=== PATIENT | male | born 1970 | race Caucasian/White ===

== ENCOUNTER 2019-11-11 10:50 | Emergency (ER) | payer OTHER ==
[~2019-11-11] VITALS: Ht 177.8 cm; Wt 169.9 kg
--- OUTSIDE RECORDS SUMMARY | 2019-11-11 10:58 | XMS REPORT ---
Author Author Nico Vines Organization [facility] Address [address] [place] [address] Care Team Providers Care Professional Nursing Tutor Name Role Phone Trent Vines Unavailable PROBLEMS Type Condition ICD9-CM Code [id number] Code Onset Dates Condition S tatus SNOMED Code Problem Chronic active hepatitis C K73.2 Act ann 439584704 Problem Abdominal pannus E65 Active 106 [id number] Problem Type 2 diabetes mellitus with foot ulcer E11.621 Active 241898773 Problem Diabetes E11.9 Active 996325607 Problem Coronary artery disease I25.10 Active 88903704 ALLERGIES No Information SOCIAL HISTORY Never Assessed PLAN OF CARE VITAL SIGNS MEDICATIONS Unknown Medications RESULTS No Results PROCEDURES No Known procedures IMMUNIZATIONS No Known Immunizations MEDICAL (GENERAL) HISTORY Type Description Date Medical History Diabetes Medical History Coronary artery disease Medical History Chronic active hepatitis C Medical History chronic back pain Surgical History heart stent x2 2012 Surgical History toe amputated right 2016 Hospitalization History myocardial infarction
--- OUTSIDE RECORDS SUMMARY | 2019-11-11 10:58 | XMS REPORT ---
Author Nico Jordan Organization [facility] Address [address] [place] [address] Care Team Providers Care Shrub Planter Name Role Phone Tiffanie Garber Unavailable PROBLEMS Type Condition ICD9-CM Code [id number] Code Onset Dates Condition S tatus SNOMED Code Problem Type 2 diabetes mellitus with unspecified complications E11.8 Active 197570840 Problem Hyperlipidemia, unspecified hyperlipidemia type E7 8.5 Active 69134581 Problem Neuropathy G62.9 Active 568715584 Problem penitentiary current use of insulin Z79.4 Active 992072626 Problem Lumbago with sciatica, left side M54.42 Active 043937795 Problem Lumbago with sciatica, right side M54.41 Active 077685892 Problem Drug abuse F19.10 Active 29930407 Problem Hypertension, essential, benign I10 Active 2365107 Problem Other chronic pain G89.29 Active 8 1288432 Problem Morbid obesity due to excess calories E66.01 Active 776821195 ALLERGIES Unknown Allergies SOCIAL HISTORY No smoking Hx information available PLAN OF CARE VITAL SIGNS MEDICATIONS Medication Instructions Dosage Frequency Start Date End Date Duration S tatus Lisinopril-Hydrochlorothiazide 25-20 MG Orally Once a day 1 tablet 24h Active RESULTS No Results PROCEDURES No Known procedures IMMUNIZATIONS No Known Immunizations
--- OUTSIDE RECORDS SUMMARY | 2019-11-11 10:58 | XMS REPORT ---
Author Nico Jordan Organization [facility] Address [address] [place] [address] Care Team Providers Care Abe Teacher Name Role Phone Tiffanie Garber Unavailable PROBLEMS Type Condition ICD9-CM Code [id number] Code Onset Dates Condition S tatus SNOMED Code Problem Type 2 diabetes mellitus with unspecified complications E11.8 Active 501573265 Problem Hyperlipidemia, unspecified hyperlipidemia type E7 8.5 Active 76422721 Problem Neuropathy G62.9 Active 015174099 Problem [facility] current use of insulin Z79.4 Active 269364098 Problem Lumbago with sciatica, left side M54.42 Active 934263439 Problem Lumbago with sciatica, right side M54.41 Active 241091508 Problem Drug abuse F19.10 Active 65607929 Problem Hypertension, essential, benign I10 Active 6722863 Problem Other chronic pain G89.29 Active 8 7541602 Problem Morbid obesity due to excess calories E66.01 Active 959841537 ALLERGIES Unknown Allergies SOCIAL HISTORY No smoking Hx information available PLAN OF CARE VITAL SIGNS MEDICATIONS Medication Instructions Dosage Frequency Start Date End Date Duration S tatus Morphine Sulfate 30 MG A ctive Fenofibrate 145 MG Orally Once a day 1 tablet 24h Active Prasugrel HCl 10 MG Acti ve Omeprazole 20 MG Orally Once a day 1 capsule 24h Active Amitriptyline HCl 150 MG Orally Once a day 1 tablet 24h Active Alprazolam 1 MG Orally Twice a day 1 tablet 12h Active Duloxetine HCl 60 MG Orally Once a day 1 capsule 24h Active Novolin R 100 UNIT/ML subcutaneous twice a day 48 u 12h Active Aspir-81 81 MG Orally Once a day 1 tablet 24h Active Carvedilol 6.25 MG Activ e Metformin HCl 1000 MG Orally Twice a day 1 tablet with meals 12h Active Acyclovir 200 MG Orally Twice a day 1 capsule 12h Active Atorvastatin Calcium 40 MG Orally Once a day 1 tablet 24h Active Pregabalin 75 MG Orally at bedtime 1 capsule Active Methadone HCl 10 MG Orally Once a day 1 tablet 24h Active Novolin N 100 UNIT/ML Subcutaneous twice a day 58 u 12h Active Ammonium Lactate 12 % Externally Twice a day 1 application to affec phi area 12h Active Lisinopril-Hydrochlorothiazide 25-20 MG Orally Once a day 1 tablet 24h Active RESULTS No Results PROCEDURES No Known procedures IMMUNIZATIONS No Known Immunizations
--- OUTSIDE RECORDS SUMMARY | 2019-11-11 10:58 | XMS REPORT ---
Author Author Nico Vines [facility] Address [address] [place] [address] Care Team Providers Care Emt P Name Role Phone Trent Vines Unavailable PROBLEMS Type Condition ICD9-CM Code [id number] Code Onset Dates Condition S tatus SNOMED Code Problem Chronic active hepatitis C K73.2 Act ann 288326971 Problem Abdominal pannus E65 Active 106 2013701410 Problem Type 2 diabetes mellitus with foot ulcer E11.621 Active 135031242 Problem Diabetes E11.9 Active 337146716 Problem Coronary artery disease I25.10 Active 65835402 ALLERGIES Unknown Allergies SOCIAL HISTORY No smoking Hx information available PLAN OF CARE VITAL SIGNS MEDICATIONS Unknown Medications RESULTS No Results PROCEDURES No Known procedures IMMUNIZATIONS No Known Immunizations
--- OUTSIDE RECORDS SUMMARY | 2019-11-11 10:58 | XMS REPORT ---
Author Nico Jordan Organization [facility] Address [address] [place] [address] Care Team Providers Care Diesel Scoop Operator Name Role Phone Tiffanie Garber Unavailable PROBLEMS Type Condition ICD9-CM Code [id number] Code Onset Dates Condition S tatus SNOMED Code Problem Type 2 diabetes mellitus with unspecified complications E11.8 Active 658315716 Problem Hyperlipidemia, unspecified hyperlipidemia type E7 8.5 Active 77042921 Problem Neuropathy G62.9 Active 453538801 Assessment Coronary artery disease invo [place]ving [place] coronary artery of [place] heart, angina presence unspecified I25.10 October, Active [id number] Assessment Lumbago with sciatica, left side M54.42 October Active 648875178 Problem 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 Unknown Non Drug Allergy October, Unknown SOCIAL HISTORY No smoking Hx information available PLAN OF CARE VITAL SIGNS Heart Rate 72 /min 2016-11-09 Respiratory Rate 20 /min 2016-11-09 Oximetry 98 % 2016-11-09 BMI 45.91 kg/m2 2016-11-09 Height 68 in 2016-11-09 Weight 302 lbs 2016-11-09 Blood pressure systolic 150 mm Hg 2016-11-09 Blood pressure diastolic 84 mm Hg 2016-11-09 MEDICATIONS Medication Instructions Dosage Frequency Start Date End Date Duration S tatus Novolin N 100 UNIT/ML Ac tive Fenofibrate 145 MG Orally Once a day 1 tablet 24h Active Lisinopril-Hydrochlorothiazide 25-20 MG Orally Once a day 1 tablet 24h Active Prasugrel HCl 10 MG Acti ve Amitriptyline HCl 150 MG Orally Once a day 1 tablet 24h Active Omeprazole 20 MG Orally Once a day 1 capsule 24h Active Atorvastatin Calcium 40 MG Orally Once a day 1 tablet 24h Active Acyclovir 200 MG Orally Twice a day 1 capsule 12h Active Aspir-81 81 MG Orally Once a day 1 tablet 24h Active Novolin R 100 UNIT/ML Ac tive Metformin HCl 1000 MG Orally Twice a day 1 tablet with meals 12h Active Methadone HCl 10 MG Orally Once a day 1 tablet 24h Active Ammonium Lactate 12 % Externally Twice a day 1 application to affec phi area 12h Active Carvedilol 6.25 MG Activ e Pregabalin 75 MG Orally at bedtime 1 capsule Active Alprazolam 1 MG Orally Twice a day 1 tablet 12h Active Morphine Sulfate 30 MG A ctive Duloxetine HCl 60 MG Orally Once a day 1 capsule 24h Active RESULTS No Results PROCEDURES Procedure Date Ordered Related Diagnosis Body Site OFFICEOUTPATIENT VISIT NEW OFFICE OR OTH ER OUTPATIENT VISIT FOR THE EVALUATION AND MANAGEMENT OF A NEW PATIENT, WHICH REQUIRES THESE November 09, 2016 IMMUNIZATIONS No Known Immunizations
--- OUTSIDE RECORDS SUMMARY | 2019-11-11 10:58 | XMS REPORT | Continuity of Care Document ---
Demographics Preferred Language Unknown Marital Status Unknown Restorationism Affiliation Unknown Race Unknown Ethnic Group Unknown Author Organization Unknown Address Unknown Phone Unavailable Allergies Active Description Code Type Severity Reaction Onset Reported/Identified Relationship to Patient Clinical Status Yes NO KNOWN DRUG ALLERGIES UNKNOWN NO KNOWN DRUG ALLERG Medications Medication Packaging Start Date St op Date Route Dosage Sig KETOROLAC VIAL INJ 30 MG/CC (TORADOL VIAL) MG 05/05/2018 05/05/2018 ONCE&0533 APIXABAN TAB 5 MG (ELIQUIS) MG 05/05/2018 05/05/2018 ONCE&0601 SMZ/TMP DS TAB (SEPTRA DS) (Bactrim DS) TAB 05/05/2018 05/05/2018 ONCE&0623 SMZ/TMP DS TAB (SEPTRA DS) (Bactrim DS) TAB 05/05/2018 05/11/2018 BID&0800,2000 Problems Date Dx Coded Attending Type Code Diagnosis Diagnosed By 03/21/2015 F F32.8 [facility] F F41.1 Gene ralized anxiety disorder [facility] 09/19/2015 F F32.8 [facility] 09/19/2015 F F41.1 Gene [facility]alized [facility] 09/19/2015 F F41.1 Gene ralized anxiety [facility] 05/04/2016 F F32.89 Oth er specified depressive episodes Marcio Navarro 05/04/2016 F F41.1 Gene [facility]alized [facility] 05/04/2016 F F41.1 Gene ralized anxiety disorder Marcio Navarro 03/10/2017 F F32.89 Oth er specified depressive episodes Joni De León 03/10/2017 F F41.1 Gene ralized anxiety disorder Joni De León 05/05/2018 ARNEL NELSON 729.5 PAIN IN LIMB 05/05/2018 ARNEL NELSON 729.8 1 SWELLING OF LIMB 05/05/2018 ARNEL NELSON M79.6 61 PAIN IN RIGHT LOWER LEG 05/05/2018 ARNEL NELSON M79.8 9 OTHER SPECIFIED SOFT TISSUE DISORDERS 05/05/2018 ARNEL NELSON V12.5 1 PERSONAL HISTORY OF VENOUS THROMBOSIS AND EMBOLISM 05/05/2018 ARNEL NELSON Z86.7 18 PERSONAL HISTORY OF OTHER VENOUS THROMBOSIS AND EMBOLISM Procedures There is no data. Results Test Result Range Sed Rate - 05/05/18 02:45 Sed Rate 8 mm/hr 0-9 Encounters ACCT No. Visit Date/Time Discharge Status Pt. Type Provider Facility Loc./Unit Complaint [id number] 02/08/2014 08:00:00 Document Registration [id number] 05/05/2018 02:25:00 05/05/2018 06:31: 00 DIS Outpatient ARNEL NELSON [facility] ER [id number] 05/05/2018 05:33:42 Document Registration
--- OUTSIDE RECORDS SUMMARY | 2019-11-11 10:58 | XMS REPORT ---
Author Nico Jordan Organization [facility] Address [address] [place] [address] Care Team Providers Care Form Carpenter Name Role Phone Tiffanie Garber Unavailable PROBLEMS Type Condition ICD9-CM Code [id number] Code Onset Dates Condition S tatus SNOMED Code Problem Type 2 diabetes mellitus with unspecified complications E11.8 Active 222633345 Problem Hyperlipidemia, unspecified hyperlipidemia type E7 8.5 Active 94011239 Problem Neuropathy G62.9 Active 983695444 Problem half-way current use of insulin Z79.4 Active 286296316 Problem Lumbago with sciatica, left side M54.42 Active 178798515 Problem Lumbago with sciatica, right side M54.41 Active 561484137 Problem Drug abuse F19.10 Active 60651375 Problem Hypertension, essential, benign I10 Active 9020947 Problem Other chronic pain G89.29 Active 8 8825839 Problem Morbid obesity due to excess calories E66.01 Active 631535740 ALLERGIES Unknown Allergies SOCIAL HISTORY No smoking Hx information available PLAN OF CARE VITAL SIGNS MEDICATIONS Medication Instructions Dosage Frequency Start Date End Date Duration S tatus Carvedilol 6.25 MG Activ e Methadone HCl 10 MG Orally Once a day 1 tablet 24h Active Amitriptyline HCl 150 MG Orally Once a day 1 tablet 24h Active Metformin HCl 1000 MG Orally Twice a day 1 tablet with meals 12h Active Pregabalin 75 MG Orally at bedtime 1 capsule Active Aspir-81 81 MG Orally Once a day 1 tablet 24h Active Ammonium Lactate 12 % Externally Twice a day 1 application to affec phi area 12h Active One Touch/One Touch II Starter Strips In Vitro twice a day as direc phi 12h Jan, Active Insulin Syringe 29G X 1/2" 1 ML as directed 12h Jan, Active Fenofibrate 145 MG Orally Once a day 1 tablet 24h Active Atorvastatin Calcium 40 MG Orally Once a day 1 tablet 24h Active Duloxetine HCl 60 MG Orally Once a day 1 capsule 24h Active Alprazolam 1 MG Orally Twice a day 1 tablet 12h Active Lisinopril-Hydrochlorothiazide 25-20 MG Orally Once a day 1 tablet 24h Active Omeprazole 20 MG Orally Once a day 1 capsule 24h Active Prasugrel HCl 10 MG Acti ve Novolin N 100 UNIT/ML Subcutaneous twice a day 58 u 12h Active Morphine Sulfate 30 MG A ctive Acyclovir 200 MG Orally Twice a day 1 capsule 12h Active Novolin R 100 UNIT/ML subcutaneous twice a day 48 u 12h Active RESULTS No Results PROCEDURES No Known procedures IMMUNIZATIONS No Known Immunizations
--- OUTSIDE RECORDS SUMMARY | 2019-11-11 10:58 | XMS REPORT ---
Author Author Nico Vines Organization [facility] Address [address] [place] [address] Care Team Providers Care Track Template Maker Name Role Phone Trent Vines Unavailable PROBLEMS Type Condition ICD9-CM Code [id number] Code Onset Dates Condition S tatus SNOMED Code Assessment Tobacco use Z72.0 14 Aug, 2016 Active 8976 5005 Assessment Tobacco abuse counseling Z71.6 Aug, A ctive 313307276 Problem Chronic active hepatitis C K73.2 Act ann 441967103 Problem Abdominal pannus E65 Active 106 7945995942 Problem Type 2 diabetes mellitus with foot ulcer E11.621 Active 918692168 Assessment Chronic active hepatitis C K73.2 Aug, Active 366218425 Problem Diabetes E11.9 Active 675378464 Problem Coronary artery disease I25.10 Active 53518771 ALLERGIES Substance Reaction Event Type Date Status N.K.D.A. Unknown Non Drug Allergy Aug, Unknown SOCIAL HISTORY No smoking Hx information available PLAN OF CARE Activity Details Pending Test Comp Metabolic Panel [phone] CMP Pending Test HCV RNA by PCR, Qn Rfx Marisol Pending Test CBC With Differential Platel et 706787 Pending Test HCV FibroSURE Pending Test Hgb A1c with eAG Estimation f/u chronic illnesses 2-3 Months,Reason:f/u chroni c illnesses VITAL SIGNS Height 69 in 2016-09-01 Weight 300.2 lbs 2016-09-01 Temperature 97.8 degrees Fahrenheit 2016-09-01 BMI 44.33 kg/m2 2016-09-01 Blood pressure systolic 119 mm Hg 2016-09-01 Blood pressure diastolic 74 mm Hg 2016-09-01 MEDICATIONS Medication Instructions Dosage Frequency Start Date End Date Duration S tatus Novolin R 100 UNIT/ML Injection bid 5 units 12h Active Lisinopril 20 MG Orally Once a day 1 tablet 24h Active Novolin N 100 UNIT/ML Subcutaneous bid 5 units 12h Active Metformin HCl 1000 MG Orally Once a day 1 tablet with meals 24h Active Acyclovir 400 MG Orally Twice a day 1 tablet 12h Active Effient Active RESULTS No Results PROCEDURES Procedure Date Ordered Related Diagnosis Body Site ESTAB PT LEVEL III September 01, 2016 IMMUNIZATIONS No Known Immunizations
--- OUTSIDE RECORDS SUMMARY | 2019-11-11 10:58 | XMS REPORT ---
Author Author Nico Vines [facility] Address [address] [place] [address] Care Team Providers Care Cad Administrator Name Role Phone Trent Vines Unavailable PROBLEMS Type Condition ICD9-CM Code [id number] Code Onset Dates Condition S tatus SNOMED Code Problem Chronic active hepatitis C K73.2 Act ann 239067983 Problem Abdominal pannus E65 Active 106 9031841931 Problem Type 2 diabetes mellitus with foot ulcer E11.621 Active 846178457 Problem Diabetes E11.9 Active 099089214 Problem Coronary artery disease I25.10 Active 42590565 ALLERGIES Unknown Allergies SOCIAL HISTORY No smoking Hx information available PLAN OF CARE VITAL SIGNS MEDICATIONS Unknown Medications RESULTS No Results PROCEDURES No Known procedures IMMUNIZATIONS No Known Immunizations
--- OUTSIDE RECORDS SUMMARY | 2019-11-11 10:58 | XMS REPORT ---
Author Nico Jordan Organization [facility] Address [address] [place] [address] Care Team Providers Care Clearing Supervisor Name Role Phone Tiffanie Garber Unavailable PROBLEMS Type Condition ICD9-CM Code [id number] Code Onset Dates Condition S tatus SNOMED Code Problem Type 2 diabetes mellitus with unspecified complications E11.8 Active 826270936 Problem Hyperlipidemia, unspecified hyperlipidemia type E7 8.5 Active 91549704 Problem Neuropathy G62.9 Active 963343528 Problem [facility] current use of insulin Z79.4 Active 146498275 Problem Lumbago with sciatica, left side M54.42 Active 992552104 Problem Lumbago with sciatica, right side M54.41 Active 392636975 Problem Drug abuse F19.10 Active 47478118 Problem Hypertension, essential, benign I10 Active 7416067 Problem Other chronic pain G89.29 Active 8 6512606 Problem Morbid obesity due to excess calories E66.01 Active 835175534 ALLERGIES Unknown Allergies SOCIAL HISTORY No smoking Hx information available PLAN OF CARE VITAL SIGNS MEDICATIONS Unknown Medications RESULTS No Results PROCEDURES No Known procedures IMMUNIZATIONS No Known Immunizations
--- OUTSIDE RECORDS SUMMARY | 2019-11-11 10:58 | XMS REPORT ---
Author Nico Jordan Organization [facility] Address [address] [place] [address] Care Team Providers Care Ferry Pilot Name Role Phone Tiffanie Garber Unavailable PROBLEMS Type Condition ICD9-CM Code [id number] Code Onset Dates Condition S tatus SNOMED Code Problem Type 2 diabetes mellitus with unspecified complications E11.8 Active 584922717 Problem Hyperlipidemia, unspecified hyperlipidemia type E7 8.5 Active 62867973 Problem Neuropathy G62.9 Active 528749936 Problem senior care current use of insulin Z79.4 Active 534249613 Problem Lumbago with sciatica, left side M54.42 Active 691523986 Problem Lumbago with sciatica, right side M54.41 Active 250303573 Problem Drug abuse F19.10 Active 49760249 Problem Hypertension, essential, benign I10 Active 4582718 Problem Other chronic pain G89.29 Active 8 6277396 Problem Morbid obesity due to excess calories E66.01 Active 026478189 ALLERGIES Unknown Allergies SOCIAL HISTORY No smoking Hx information available PLAN OF CARE VITAL SIGNS MEDICATIONS Medication Instructions Dosage Frequency Start Date End Date Duration S tatus Lisinopril-Hydrochlorothiazide 25-20 MG Orally Once a day 1 tablet 24h Active RESULTS No Results PROCEDURES No Known procedures IMMUNIZATIONS No Known Immunizations
--- NOTE | 2019-11-11 11:15 | ED Integumentary General ---
General Chief Complaint: Skin/Wound Problems Stated Complaint: LT FOOT ULCER Source: patient (patient presents with law enforcement and is under arrest and is incarcerated patient is in handcuffs) Exam Limitations: no limitations History of Present Illness Date Seen by Provider: November 11, 2019 Time Seen by Provider: 10:55 Initial Comments 49-year-old male presents to the emergency room with left foot diabetic ulcers. Patient states he's had ulcers on-and-off for years she has 2 missing toes on his right foot. Patient states he has been placed on Bactrim and Augmentin by the nurse practitioner who saw him in the residential. Patient understands he is going to longterm and will continue with his diabetic care. He openly admits he does not adhere to any diet and has significant intake of high caloric liquids. Patient's blood sugar this morning was 243 per the patient. He has no chest pain or shortness of breath no signs of ischemic heart disease but is morbidly obese. Patient has some desquamation and signs of infection but no fluctuance. Area of the ball the foot and on the medial aspect of the hallux pad shows signs of chronic infection. Patient does not have an open lesion at this time but is heading in that direction understands this. I spent a fair amount of time speaking with the patient regarding diet medication control and the critical need for him to play and active role in his diabetes. Patient denies other acute medical problems today. He is edentulous. Patient has given informed consent for diagnostic and therapeutic purposes. Patient denies any has not had imaging of his left foot for "a long time". He also states he's not had any laboratory tests so CBC lactic acid and chemistry profile has been ordered. His current medication for the diabetic foot ulcers appropriate. These ulcers are typically polymicrobial and local care and prevention of opening of the lesion is critical. Timing/Duration: getting worse (with chronic diabetic foot ulcers and infections secondary to poor care and lack of diabetic control. Patient has already lost 2 toes on his right foot.) Severity: moderate Location: extremities (with diabetic neuropathy and obvious infection on the left ball and hallux) Possible Cause: exposure to illness (patient has diabetic neuropathy in both lower extremities in addition to poor diabetic control prior to coming into residential he was smoking 1 pack per day he noticed a smoke 2 cigarettes per week.) Modifying Factors: improves with other (loss of diabetic control is contributing to this complication he needs to worked diligently on diabetic control) Associated Symptoms: change in skin texture, numbness, tingling, other (diabetic neuropathy) Allergies and Home Medications Allergies Coded Allergies: No Known Drug Allergies (Unverified , 11/11/19) Patient Home Medication List Home Medication List Reviewed: Yes Review of Systems Review of Systems Constitutional: see HPI, weakness (presently shackles and handcuffs because he is incarcerated) EENTM: see HPI, other (edentulous no dentures) Respiratory: short of breath (when trying to ambulate secondary to morbid obesity despite losing weight from 470 pounds to 330 pounds. Patient also is a one pack-a-day smoker and has been strongly advised to stop smoking. He'll use to smoke 2 cigarettes per week while he is incarcerated) Cardiovascular: no symptoms reported, other (poorly controlled diabetes tobacco smoker morbid obesity high risk for vascular disease no symptoms of ischemic heart disease at this time) Gastrointestinal: see HPI, other (. Obesity with a 140 pound weight loss but has poorly controlled diabetes) Genitourinary: no symptoms reported Musculoskeletal: see HPI, muscle weakness, other (patient has bilateral diabetic neuropathy missing to right toes and now has developing diabetic foot ulcer on the left.) Skin: change in color (desquamation and yellow areas on the left ball of the foot and left hallux), other (diabetic neuropathy is obvious and patient's high risk for skin breakdown. Currently is on trimethoprim sulfamethoxazole and Augmentin.) Psychiatric/Neurological: See HPI, Anxiety (from incarceration and no evidence of suicidal or homicidal ideation) Endocrine: Increased Hunger (secondary to poorly controlled diabetes and morbid obesity), Other (patient has lost 140 pounds over the past couple years he states that this is ago from continue losing weight sugars are still above 240 and he has been smoking one pack per day.) Hematologic/Lymphatic: See HPI Past [id number]-Obynqv Hx Past Med/Social Hx: Reviewed Nursing Past Med/Soc Hx Patient Social History Alcohol Use: Rarely Uses Recreational Drug Use: Yes Drug of Choice: Cocaine, Heroin, Meth Smoking Status: Current Everyday Smoker Type Used: Cigarettes 2nd Hand Smoke Exposure: No Recent Foreign Travel: No Contact w/Someone Who Travel: No Physical Abuse: No Sexual Abuse: No Mistreated: No Fear: No Past Medical History Surgeries: Yes (patient has had 2 of his right toes amputated secondary to diabetic foot ul) Respiratory: Yes (chronic tobacco use and a morbidly obese male with uncontrolled diabetes) COPD Currently Using CPAP: No (patient is stop using CPAP after he lost weight from 470 pounds to 330 poun) Currently Using BIPAP: No Cardiac: No (however patient does have peripheral neuropathy from uncontrolled diabetes) Neurological: No Gastrointestinal: Yes (patient has morbid obesity but has dropped weight from 470 pounds to 330 po) Gastroesophageal Reflux 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), Arthritis (from morbid obesity) Diabetes, Insulin dep, Diabetes, Non-Insulin dep (with continued poorly controlled diabetes despite losing 140 pounds) Are Your Blood Sugars Over 250: Yes (patient was 243 today but has history of elevated sugars of 250 he may need) HEENT: Yes (edentulous) Loss of Vision: Bilateral (when patient has significant hyperglycemia) Cancer: No Personality Disorder (patient is currently incarcerated and plans to go to longterm) Integumentary: Yes (diabetic neuropathy lower extremities missing to right toes ) Pruritis (from diabetic neuropathy and infection of the hallux left side and the ball of the left foot) Family Medical History Reviewed Nursing Family Hx Physical Exam Vital Signs Vital Signs - First Documented 11/11/19 11:09 Temp 36.7 Pulse 72 Resp 20 B/P (MAP) 140/94 (109) Pulse Ox 96 O2 Delivery Room Air Capillary Refill : General Appearance: moderate distress, obese (morbid obesity patient used to weigh 470 pounds now weighs 330), other (patient presents with diabetic neuropathy early diabetic foot ulcers in the left and to missing toes on the right from prior amputations the patient is aware of his high risk situation and was control his diabetes) HEENT: PERRL/EOMI, normal ENT inspection (but is edentulous), pharynx normal Neck: non-tender, full range of motion Cardiovascular: regular rate, rhythm, no edema, no gallop, no JVD, no murmur Respiratory: chest non-tender, lungs clear, normal breath sounds, no respirato ry distress, no accessory muscle use (has morbid obesity and inspiratory rales posterior bases that clear with deep breathing patient has a history of smoking one pack per day) Gastrointestinal: normal bowel sounds, non tender, soft, no organomegaly, no pulsatile mass Back: normal inspection, no CVA tenderness, no vertebral tenderness Extremities: normal range of motion, non-tender, normal inspection, no pedal edema, no calf tenderness, normal capillary refill, other (patient with bilateral peripheral neuropathy in both legs missing to right toes from prior amputations obvious early diabetic foot ulcer on the left hallux and ball of the foot) Neurologic/Psychiatric: evp managing director II-XII nml as tested, alert, normal mood/affect (some feelings of depression and sense of HOPELESSNESS in regard to diabetic control), oriented x 3, sensory deficit (with diabetic neuropathy bilateral feet) Skin: warm/dry, other (classic early diabetic foot ulcer on the left ball of foot and left medial hallux right side has 2 missing toes) Skin Problem Location: lower extremities (bilateral diabetic neuropathy and left-sided diabetic foot ulcer development) Skin Problem Character: erythema, lesion (diabetic foot ulcer left side), thickening (callus formation starting to occur) Lymphatic: no adenopathy Progress/Results/Core Measures Results/Orders Lab Results Laboratory Tests Test 11/11/19 11:15 Range/Units White Blood Count 10.2 4.3-11.0 10^3/uL Red Blood Count 5.19 4.35-5.85 10^6/uL Hemoglobin 14.1 13.3-17.7 G/DL Hematocrit 43 40-54 % Mean Corpuscular Volume 83 80-99 FL Mean Corpuscular Hemoglobin 27 25-34 PG Mean Corpuscular Hemoglobin Concent 33 32-36 G/DL Red Cell Distribution Width 13.8 10.0-14.5 % Platelet Count 231 130-400 10^3/uL Mean Platelet Volume 10.5 H 7.4-10.4 FL Neutrophils (%) (Auto) 67 42-75 % Lymphocytes (%) (Auto) 20 12-44 % Monocytes (%) (Auto) 9 0-12 % Eosinophils (%) (Auto) 3 0-10 % Basophils (%) (Auto) 1 0-10 % Neutrophils # (Auto) 6.9 1.8-7.8 X 10^3 Lymphocytes # (Auto) 2.1 1.0-4.0 X 10^3 Monocytes # (Auto) 0.9 0.0-1.0 X 10^3 Eosinophils # (Auto) 0.3 0.0-0.3 10^3/uL Basophils # (Auto) 0.1 0.0-0.1 10^3/uL Neutrophils % (Manual) 62 % Lymphocytes % (Manual) 14 % Monocytes % (Manual) 9 % Eosinophils % (Manual) 2 % Basophils % (Manual) 1 % Band Neutrophils 4 % Atypical Lymphocytes 8 % Blood Morphology Comment NORMAL Sodium Level 138 135-145 MMOL/L Potassium Level 4.2 3.6-5.0 MMOL/L Chloride Level 101 98-107 MMOL/L Carbon Dioxide Level 26 21-32 MMOL/L Anion Gap 11 5-14 MMOL/L Blood Urea Nitrogen 18 7-18 MG/DL Creatinine 0.79 0.60-1.30 MG/DL Estimat Glomerular Filtration Rate > 60 BUN/Creatinine Ratio 23 Glucose Level 295 H 70-105 MG/DL Calcium Level 9.7 8.5-10.1 MG/DL Corrected Calcium 10.1 8.5-10.1 MG/DL Total Bilirubin 0.3 0.1-1.0 MG/DL Aspartate Amino Transf (AST/SGOT) 15 5-34 U/L Alanine Aminotransferase (ALT/SGPT) 18 0-55 U/L Alkaline Phosphatase 110 40-136 U/L Total Protein 7.2 6.4-8.2 GM/DL Albumin 3.5 3.2-4.5 GM/DL My Orders Orders - DEE DE LA ROSA DO Cbc And Manual Diff (11/11/19 11:12) Comprehensive Metabolic Panel (11/11/19 11:12) Lactic Acid Analyzer (11/11/19 11:12) Foot 3 View Left (11/11/19 11:12) Vital Signs/I&O 11/11/19 11:09 Temp 36.7 Pulse 72 Resp 20 B/P (MAP) 140/94 (109) Pulse Ox 96 O2 Delivery Room Air Departure Impression Primary Impression: Diabetic foot ulcer associated with diabetes mellitus due to underlying condition Additional Impressions: Morbid obesity due to excess calories Tobacco dependence due to cigarettes Disposition: [address]/[place] (patient is currently incarcerated) Condition: Improved Departure-Patient Inst. Decision time for Depature: 11:56 Referrals: [facility] Patient Instructions: Smoking: Not Just Harmful to Your Lungs and Heart, Health Risks of a High BMI, Diabetes and Diet, Cellulitis (Skin Infection), Child (DC), Foot Care for Diabetics Add. Discharge Instructions: 49-year-old male with developing diabetic foot ulcers of the left lower extremity and to missing toes from diabetic foot/toe amputations from diabetic neuropathy. Patient is currently taking sulfamethoxazole trimethoprim and Augmentin which cover him for the infection. Patient should avoid trauma to the area he should be on a calorie restricted diet he has done well by losing weight from 470 pounds down to 330 pounds. He however continues to be hyperglycemic with a blood sugar 295 his white count is 10.2 hemoglobin is 14.1 creatinine 0.79. Patient is medically stable for return to the point of incarceration. He should follow-up with the nurse practitioner in the residential setting. We strongly discussed the need to stop smoking. Patient was smoking one pack of cigarettes per day prior to incarceration. All discharge instructions reviewed with patient and/or family. Voiced understanding. Copy Copies To 1: [facility]/DEE BERMUDEZ DO November 11, 2019 11:15
[2019-11-11 11:26] LABS: BASOPHILS % (AUTO) 1 % (0-10); EOSINOPHILS % (AUTO) 3 % (0-10); HEMATOCRIT 43 % (40-54); HEMOGLOBIN 14.1 G/DL (13.3-17.7); LYMPHOCYTES % (AUTO) 20 % (12-44); MEAN CORPUSCULAR HEMOGLOBIN 27 PG (25-34); MEAN CORPUSCULAR HGB CONC 33 G/DL (32-36); MEAN CORPUSCULAR VOLUME 83 FL (80-99); MEAN PLATELET VOLUME 10.5 FL (7.4-10.4); MONOCYTES % (AUTO) 9 % (0-12); NEUTROPHILS % (AUTO) 67 % (42-75); PLATELET COUNT 231 10^3/uL (130-400); RED CELL DISTRIBUTION WIDTH 13.8 % (10.0-14.5); WHITE BLOOD COUNT 10.2 10^3/uL (4.3-11.0)
[2019-11-11 11:27] LABS: BASOPHILS # (AUTO) 0.1 10^3/uL (0.0-0.1); EOSINOPHILS # (AUTO) 0.3 10^3/uL (0.0-0.3); LYMPHOCYTES # (AUTO) 2.1 X 10^3 (1.0-4.0); MONOCYTES # (AUTO) 0.9 X 10^3 (0.0-1.0); NEUTROPHILS # (AUTO) 6.9 X 10^3 (1.8-7.8)
--- NOTE | 2019-11-11 11:37 | Diagnostic Imaging Report ---
EXAM: FOOT 3 VIEW LEFT INDICATION: Sore on bottom of the left foot by great toe for 2 months. COMPARISON: None. FINDINGS: No fracture or malalignment. No suspicious osteoblastic or lytic lesions. No radiopaque foreign bodies or soft tissue gas. Plantar and Achilles calcaneal heel spurs. IMPRESSION: No acute radiographic findings in the left foot. Dictated by: Dictated on workstation # [id number]
[2019-11-11 11:46] LABS: ATYPICAL LYMPHOCYTES 8 %; BAND NEUTROPHILS 4 %; BASOPHILS % (MANUAL) 1 %; EOSINOPHILS % (MANUAL) 2 %; LYMPHOCYTES % (MANUAL) 14 %; MONOCYTES % (MANUAL) 9 %; NEUTROPHILS % (MANUAL) 62 %; RBC MORPH NORMAL
[2019-11-11 11:47] LABS: BUN/CREATININE RATIO 23; CALCIUM 9.7 MG/DL (8.5-10.1); CARBON DIOXIDE 26 MMOL/L (21-32); CHLORIDE 101 MMOL/L (98-107); CREATININE SERUM 0.79 MG/DL (0.60-1.30); GFR ESTIMATED > 60; GLUCOSE 295 MG/DL (70-105); POTASSIUM 4.2 MMOL/L (3.6-5.0); SODIUM 138 MMOL/L (135-145)
[2019-11-11 11:48] LABS: ALANINE AMINOTRANSFERASE 18 U/L (0-55); ALBUMIN 3.5 GM/DL (3.2-4.5); ALKALINE PHOSPHATASE 110 U/L (40-136); BILIRUBIN,TOTAL 0.3 MG/DL (0.1-1.0); TOTAL PROTEIN 7.2 GM/DL (6.4-8.2)
[2019-11-11 12:07] VITALS: BP 138/93
--- NOTE | 2019-11-11 12:07 | NUR ---
Pt released from ED in [facility] Custody after ER medical screening/evaluation completed. Pt and Officer verbalize understanding of instructions reviewed. To continue on 2 antibiotics prescribed yesterday.
== END 2019-11-11 12:07 ==
LOC: ER FS 10:53
DX: E11.621 Type 2 diabetes mellitus with foot ulcer (principal); L97.529 Non-pressure chronic ulcer of other part of left foot with unspecified severity; E66.01 Morbid (severe) obesity due to excess calories; E11.40 Type 2 diabetes mellitus with diabetic neuropathy, unspecified; F17.210 Nicotine dependence, cigarettes, uncomplicated; Z89.421 Acquired absence of other right toe(s); Z68.43 Body mass index [BMI] 50.0-59.9, adult
CPT/HCPCS: 36415; 73630; 80053; 85007; 85027